=== PATIENT | male | born 1930 | race Caucasian/White ===

== ENCOUNTER → 2016-05-25 | Outpatient (REF) | payer MEDICARE ==
[~2016-05-25] MED LIST: AMLO5TAB4 PO; ASPI-860 PO; CLOP75TA3 PO; SIMV40TA PO
[2016-05-25 09:12] LABS: BILIRUBIN,URINE Negative (Negative); CLARITY,URINE Clear; COLOR,URINE Yellow; GLUCOSE, URINE (UA) Negative (Negative); LEUKOCYTE ESTERASE, URINE Negative (Negative); UROBILINOGEN,URINE 0.2 mg/dL (0.2-1.0)
[2016-05-25 09:16] LABS: ALBUMIN 3.8 g/dL (3.4-5.0); ANION GAP 14.7 MEQ/L (3-15); CALCULATED IONIZED CALCIUM 4.1 mg/dL (3.8-4.6); TOTAL PROTEIN 6.9 g/dL (6.4-8.5)
== END ==
LOC: LAB 09:00
PROVIDERS: ATTEND Nurse Practitioner Family
DX: I10 Essential (primary) hypertension (principal); E78.1 Pure hyperglyceridemia; R31.29 Other microscopic hematuria
CPT/HCPCS: 80053; 80061; 81003